=== PATIENT | female | born 1985 | race Caucasian/White ===

== ENCOUNTER 2019-03-31 12:43 | Inpatient (IN) | payer OTHER ==
[2019-03-31 13:40] VITALS: BMI 25.7
--- NOTE | 2019-03-31 15:00 | HP ---
COWS - Scale Resting Pulse: 1= [place] 81-100 Sweatin= Chills/Flushing Restless Observation: 1= Difficult to Sit Still Pupil Size: 1= Pupils >than Normal Bone or Joint Aches: 1= Mild Discomfort Runny Nose/ Eye Tearin= Runny Nose/Eyes GI Upset > 30mins: 2= Nausea/Diarrhea Tremor Observation: 2= Slight Tremor Visible Yawning Observation: 1= 1-2x During Session Anxiety or Irritability: 1=Feels Anxious/Irritable Goose Flesh Skin: 0=Smooth Skin COWS Score: 13 CIWA Score Nausea/Vomitin Muscle Tremors: 2 Anxiety: 2 Agitation: 1-Slight > Activity Paroxysmal Sweats: 2 Orientation: 0-Oriented Tacttile Disturbances: 1-Very Mild Itch/Numbness Auditory Disturbances: 0-None Visual Disturbances: 1-Very Mild Sensitivity Headache: 2-Mild CIWA-Ar Total Score: 13 - Admission Criteria [facility]ASAS Guidelines: Admission for Medically Managed Detox: Requires at least one of the followin. CIWA greater than 12 2. Seizures within the past 24 hours 3. Delirium tremens within the past 24 hours 4. Hallucinations within the past 24 hours 5. Acute intervention needed for co occurring medical disorder 6. Acute intervention needed for co occurring psychiatric disorder 7. Severe withdrawal that cannot be handled at a lower level of care (continued vomiting, continued diarrhea, abnormal vital signs) requiring intravenous medication and/or fluids 8. Admission [facility] Chief Complaint: 33 y/o F with PMH Crohn's dz, migraines, palpitations, GERD, anxiety, depression , who presents for detox from clonazepam and oxycodone. Allergies/Adverse Reactions: Allergies Allergy/AdvReac Type Severity Reaction Status Date / Time adalimumab [From Humira] Allergy Severe Rash Verified 03/31/19 13:11 infliximab [From Remicade] Allergy Severe Swelling Verified 03/31/19 13:13 iodine Allergy Severe Difficulty Verified 03/31/19 13:13 Breathing iohexol Allergy Severe Difficulty Verified 03/31/19 13:14 Breathing morphine Allergy Severe Hives Verified 03/31/19 13:10 vancomycin Allergy Severe Itching Verified 03/31/19 13:11 ciprofloxacin [From Cipro] Allergy Mild Rash Verified 03/31/19 13:15 gadofosveset Allergy Mild Itching Verified 03/31/19 13:15 metoclopramide [From Reglan] Allergy Mild Rash Verified 03/31/19 13:10 History of Present Illness: 33 y/o F with PMH Crohn's dz, migraines, palpitations, GERD, anxiety, depression , who presents for detox from clonazepam and oxycodone. Per pt, she has had multiple surgeries. She has had R lumpectomy 2006, ileo-colostomy 2007 w reversal 2008, lap ibeth 2013, umbilical hernia 2014. After she had her ileo- colectomy in 2007, she was placed on oxycodone for 1 month. States she was on oxycodone and percocets. Was taking 2 tabs of percocet TID, then tapered. States ever since, she has intermittently been on oxycodone, oxycontin. Most recently, she was hospitalized at [facility] and was found to have a Crohn's flare. At the time, she was found to have colitis and was managed with clonazepam and dilaudid for 4 day duration. States it was cut "cold turkey" three days ago. Has been feeling tremulous ever since. No other drug use PMH: as above PsxH: as above: R lumpectomy 2006, ileo-colostomy 2007 w reversal 2008, lap ibeth 2013, umbilical hernia 2014. meds: metoprolol succinate, lyrica, flonase, claritin, famotidine, sprintec ocp , sumatriptan, stelara, wellbutrin, cymbalta, omeprazole FH: mother - htn, anxiety, depression, hld SH : lives in [place] w parents. social drinker denies other use. no cigarettes Exam Limitations: No Limitations - Ebola screening Have you traveled outside of the country in the last 21 days: No Have you had contact with anyone from an Ebola affected area: No Have you been sick,other than usual withdrawal symptoms: No Do you have a fever: No - Review of Systems Constitutional: Chills EENT: reports: Blurred Vision Respiratory: reports: No Symptoms reported Cardiac: reports: Palpitations GI: reports: Diarrhea : reports: No Symptoms Reported Musculoskeletal: reports: No Symptoms Reported Integumentary: reports: Bruising Neuro: reports: No Symptoms reported Endocrine: reports: No Symptoms Reported Hematology: reports: No Symptoms Reported Psychiatric: reports: Orientated x3 Patient History - Patient Medical History Hx Anemia: No Hx Asthma: No Hx Chronic Obstructive Pulmonary Disease (COPD): No Hx Cancer: No Hx Cardiac Disorders: No Hx Congestive Heart Failure: No Hx Hypertension: No Hx Hypercholesterolemia: No Hx Pacemaker: No HX Cerebrovascular Accident: No Hx Seizures: No Hx Dementia: No Hx Diabetes: No Hx Gastrointestinal Disorders: No Hx Liver Disease: No Hx Genitourinary Disorders: No Hx Sexually Transmitted Disorders: No Hx Renal Disease (ESRD): No Hx Thyroid Disease: No Hx Human Immunodeficiency Virus (HIV): No Hx Hepatitis C: No Hx Depression: Yes Hx Suicide Attempt: No Hx Bipolar Disorder: No Hx Schizophrenia: No Other Medical History: crohn's dz, migraines, palpitations, gerd, anxiety - Patient Surgical History Past Surgical History: Yes Other Surgical History: R lumpectomy, ileo-colectomy, with reversal, lap ibeth, umbilical hernia - PPD History Documented Results: Positive w/o proof PPD to be Administered?: No - Reproductive History Patient is a Female of Child Bearing Age (11 -55 yrs old): Yes Last Menstrual Period: 03/20/19 Patient : No - Smoking Cessation Smoking history: Never smoked - Substance & Tx. History Substance Use Type: Prescribed - Substances abused Oxycontin Substance route: Oral Frequency: Daily Amount used: 120 mg Age of first use: 29 Date of last use: 03/26/19 Other Other (specify): clonazepam Substance route: Oral Frequency: Daily Family Disease History - Family Disease History Family Disease History: Other: Mother (htn, anxiety, depression, hld ) Admission Physical Exam S - Vital Signs Vital Signs: Vital Signs - 24 hr 03/31/19 03/31/19 13:30 14:34 Temperature 97.0 F L 97.0 F L Respiratory 18 18 Rate - Physical General Appearance: Yes: Within Normal Limits, Anxious HEENTM: Yes: Within Normal Limits Respiratory: Yes: Lungs Clear Neck: Yes: Within Normal Limits Breast: Yes: Breast Exam Deferred Cardiology: Yes: S1, S2, Tachycardia Abdominal: Yes: Other (+past surgical scars, diffuse tenderness) Genitourinary: Yes: Within Normal Limits Back: Yes: Within Normal Limits Musculoskeletal: Yes: Within Normal Limits Extremities: Yes: Within Normal Limits Neurological: Yes: technical solutions engineer II-XII NML intact Integumentary: Yes: Within Normal Limits Lymphatic: Yes: Within Normal Limits - Diagnostic (1) Opiate withdrawal Current Visit: Yes Status: Acute (2) Crohn disease Current Visit: Yes Status: Chronic (3) Migraines Current Visit: Yes Status: Chronic (4) Benzodiazepine withdrawal Current Visit: Yes Status: Chronic (5) GERD (gastroesophageal reflux disease) Current Visit: Yes Status: Chronic (6) Anxiety Current Visit: Yes Status: Chronic (7) Depression Current Visit: Yes Status: Chronic (8) Dehydration Current Visit: Yes Status: Chronic Cleared for Admission [facility] - Detox or Rehab [facility] Level of Care: Medically Managed Detox Regimen/Protocol: Methadone/Valium Breathalyzer - Breathalyzer Breathalyzer: 0 Urine Drug Screen - Test Device Lot number: [id number] Expiration date: 12/31/20 - Control Is test valid?: Yes - Results Drug screen NEGATIVE: No Urine drug screen results: OXY-Oxycodone Inpatient Rehab Admission - Rehab Decision to Admit Inpatient rehab admission?: No
[2019-03-31] MEDS ORDERED: METHADONE HCL 10 MG TABLET (FOR DETOX USE ONLY) PO ONE (15:30)
[2019-03-31] MEDS ORDERED: cloNIDine HCL 0.1 MG TABLET PO PRN (15:30)
[2019-03-31] MEDS ORDERED: MAGNESIUM HYDROX 2400MG/30ML ORAL SUSPENSION 30 ML CUP PO PRN (15:34)
[2019-03-31] MEDS ORDERED: BISMUTH SUBSALICYLATE 524 MG/30 ML UD PO PRN (15:34)
[2019-03-31] MEDS ORDERED: MELATONIN 5 MG TABLETS PO PRN (15:34)
[2019-03-31] MEDS ORDERED: ACETAMINOPHEN 325 MG TABLET (FP) PO PRN ×2 (15:34)
[2019-03-31] MEDS ORDERED: hydrOXYzine PAMOATE 25 MG CAPSULE (FP) PO PRN (15:34)
[2019-03-31] MEDS ORDERED: IBUPROFEN 400 MG TABLET (FP) PO PRN (15:34)
[2019-03-31] MEDS ORDERED: RANITIDINE PO SCH (15:45)
--- NOTE | 2019-03-31 15:52 | PN ---
Teaching Attending Note Name of Resident: Sydney Jorge ATTENDING PHYSICIAN STATEMENT I saw and evaluated the patient. I reviewed the resident's note and discussed the case with the resident. I agree with the resident's findings and plan as documented. SUBJECTIVE:this 33 years old female with opioid dependence prescribed, ulcerative colitis,multiple surgery,s/p lap cholecystectomy,and umbilical hernia , OBJECTIVE: Vital Signs Period Temp Pulse Resp BP Sys/Carrillo Pulse Ox Last 24 Hr 97.0 F-97.0 F 96 18-18 131/93 ASSESSMENT AND PLAN: this 33 years old female with multiple medical problem opiate and benzodiazepam dependence seeking detox, multiple medical problem,need in patient detox medical management,methadone and valium regen,she would like to be completely detox
[2019-03-31] MEDS ORDERED: SUMAtriptan SUCCINATE 50 MG TABLET PO PRN (16:07)
[2019-03-31] MEDS: PANTOPRAZOLE 20 MG TABLET (FP) PO SCH (16:52)
[2019-03-31] MEDS: diazePAM 5 MG TABLET PO SCH ×2 (16:52→22:18)
--- NOTE | 2019-03-31 18:14 | PN ---
[facility] Progress Note Note: Patient states on Lyrica and takes as prescribed. PDMP reviewed and will continue Lyrica. Patient Name: Caren Knott Date: 1985 Address: [address] [place] [address] Sex: Female Rx Written Rx Dispensed Drug Quantity Days Supply Prescriber Name 03/07/2019 03/07/2019 lyrica 150 mg capsule 90 30 Maribell Valadez 02/07/2019 02/11/2019 oxycontin er 60 mg tablet 60 30 JuárezJen MD 02/07/2019 02/10/2019 oxycodone-acetaminophen 5-325 mg tab 60 30 JuárezJen MD 09/20/2018 02/06/2019 lyrica 150 mg capsule 90 30 NidiryShima MD 02/06/2019 02/06/2019 clonazepam 0.5 mg tablet 120 30 Salinas, Leonardo 09/20/2018 01/13/2019 lyrica 150 mg capsule 90 30 NidiryShima MD 01/09/2019 01/10/2019 oxycodone-acetaminophen 5-325 mg tab 90 30 JuárezJen MD 01/09/2019 01/10/2019 oxycontin er 60 mg tablet 60 30 JuárezJen MD 09/20/2018 12/16/2018 lyrica 150 mg capsule 90 30 NidiryShima MD 12/12/2018 12/12/2018 oxycodone-acetaminophen 5-325 mg tab 90 30 JuárezJen MD 12/09/2018 12/10/2018 oxycontin er 60 mg tablet 60 30 JuárezJen MD 09/20/2018 11/19/2018 lyrica 150 mg capsule 90 30 NidiryShima MD 11/14/2018 11/14/2018 oxycodone-acetaminophen 5-325 mg tab 90 30 JuárezJen MD 11/08/2018 11/11/2018 oxycontin er 60 mg tablet 60 30 JuárezJen MD 11/07/2018 11/08/2018 clonazepam 0.5 mg tablet 120 30 Salinas, Leonardo 09/20/2018 10/25/2018 lyrica 150 mg capsule 90 30 Nidiry, Shima Cason MD 10/15/2018 10/16/2018 oxycodone-acetaminophen 5-325 mg tab 90 30 Nidiry, Shima Cason MD 10/10/2018 10/11/2018 oxycontin er 60 mg tablet 60 30 Nidiry, Shima Cason MD 10/11/2018 10/11/2018 clonazepam 0.5 mg tablet 60 30 David Odonnell MD 09/20/2018 09/30/2018 lyrica 150 mg capsule 90 30 Nidiry, Shima Cason MD 09/15/2018 09/17/2018 oxycodone-acetaminophen 5-325 mg tab 90 30 Nidiry, Shima Cason MD 09/10/2018 09/11/2018 oxycontin er 60 mg tablet 60 30 Jen Juárez MD 03/29/2018 09/02/2018 lyrica 150 mg capsule 90 30 Nidiry, Shima Cason MD 08/13/2018 08/14/2018 oxycodone-acetaminophen 5-325 mg tab 90 30 Nidiry, Shima Cason MD 08/09/2018 08/09/2018 oxycontin er 60 mg tablet 60 30 Nidiry, Shima Cason MD 03/29/2018 08/06/2018 lyrica 150 mg capsule 90 30 Nidiry, Shima Cason MD 07/15/2018 07/16/2018 oxycodone-acetaminophen 5-325 mg tab 90 30 Nidiry, Shima Cason MD 07/11/2018 07/12/2018 clonazepam 0.5 mg tablet 120 30 Leonardo Salinas 07/11/2018 07/12/2018 oxycontin er 60 mg tablet 60 30 Nidiry, Shima Cason MD 03/29/2018 07/09/2018 lyrica 150 mg capsule 90 30 Nidiry, Shima Cason MD 06/13/2018 06/13/2018 oxycodone-acetaminophen 5-325 mg tab 180 30 Nidiry, Shima Cason MD 03/29/2018 06/11/2018 lyrica 150 mg capsule 90 30 Nidiry, Shima Cason MD 06/06/2018 06/07/2018 oxycontin er 60 mg tablet 60 30 Nidiry, Shima Cason MD 03/29/2018 05/16/2018 lyrica 150 mg capsule 90 30 Nidiry, Shima Cason MD 05/13/2018 05/14/2018 oxycodone-acetaminophen 5-325 mg tab 180 30 Nidiry, Shima Cason MD 05/09/2018 05/10/2018 oxycontin er 60 mg tablet 60 30 Nidiry, Shima Cason MD 03/29/2018 04/23/2018 lyrica 150 mg capsule 90 30 Nidiry, Shima Cason MD 04/12/2018 04/12/2018 oxycodone-acetaminophen 5-325 mg tab 180 30 Nidiry, Shima Cason MD 04/08/2018 04/08/2018 oxycontin er 60 mg tablet 60 30 Nidiry, Shima Cason MD
[2019-03-31] MEDS: PREGABALIN 75 MG CAPSULE PO SCH (22:18)
[2019-04-01] MEDS: MENTHOL/PHENOL 1 EACH UD MM PRN (00:57)
[2019-04-01] MEDS: diazePAM 5 MG TABLET PO SCH ×3 (06:06→22:19)
[2019-04-01] MEDS: PREGABALIN 75 MG CAPSULE PO SCH ×3 (06:06→22:18)
[2019-04-01] MEDS ORDERED: METHADONE HCL 5 MG TABLET (FOR DETOX USE ONLY) ONE (09:04)
[2019-04-01] MEDS ORDERED: METHADONE HCL 10 MG TABLET (FOR DETOX USE ONLY) ONE (09:05)
[2019-04-01] MEDS ORDERED: cloNIDine HCL 0.1 MG TABLET PO ONE (09:31)
[2019-04-01] MEDS: PANTOPRAZOLE 20 MG TABLET (FP) PO SCH (09:33)
[2019-04-01] MEDS: PRENATAL VITAMINS W/ FOLIC ACID TABLET (FP) PO SCH (09:33)
[2019-04-01] MEDS: metoPROLOL SUCCINATE 25 MG TAB.SR.24H (FP) PO SCH (09:33)
[2019-04-01] MEDS: predniSONE 10 MG TABLET (UD) PO SCH (09:42)
[2019-04-01] MEDS ORDERED: NORGESTIMATE PO SCH (10:00)
[2019-04-01] MEDS ORDERED: ETHINYL ESTRADIOL PO SCH (10:00)
[2019-04-01] MEDS ORDERED: METHADONE (DETOX) 20 MG, METHADONE (DETOX) 5 MG PO ONE (10:00)
--- NOTE | 2019-04-01 10:26 | CONSULT ---
[facility] Psychiatric Consult - Data Date of interview: 04/01/19 Admission source: WILIAN/Nam Meier Identifying data: Ms Julien is a 33 years old single female, unemployed receiving SSI, domiciled living with parents seeking detox treatment for oxycontin and benzodiazepine Substance Abuse History: Reports history of oxycontin and klonopin use. Refer to addiction counselor's summary for further information Medical History: Significant for migraine headache, GERD, PPD+, history of crohn 's disease and surgeries(right lumpectomy for benign breast tumor, ileo- colostomy in 2007 and reverse in 2008, lap cholecystectomy, umbilical hernia repair) Psychiatric History: Reports that her first psychiatric contact was in 2007 as consequence of depression related to her crohn's diagnosis. She saw a psychiatrist at [facility] in [facility] and she was started on Lexapro 20 mg/day and Klonopin. She has been receiving psychiatric treatment at same clinic since but with different psychiatrist. She is currently prescribed Wellbutrin XL 150 mg/day and Cymbalta 30 mg/day. Reports one previous psychiatric admission to [facility] in 2016 for 4 days. She said that at time she took a combination of medications including klonopin, Lyrica and and woke up confused. She told sba underwriter that she took medications prescribed to her at the right dose and denies that it was suicidal attempt. Denies any previous suicidal attempt. At present, reports feeling mildly depressed, anxious and sleeping poorly Physical/Sexual Abuse/Trauma History: Denies history of emotional, physical or sexual abuse as well as DV relationship Additional Comment: Denies criminal history Mental Status Exam - Mental Status Exam Alert and Oriented to: Time, Place, Person Cognitive Function: Fair Patient Appearance: Well Groomed Mood: Depressed (mildly), Anxious (mildly) Affect: Appropriate Patient Behavior: Cooperative Speech Pattern: Clear Voice Loudness: Normal Thought Process: Intact, Goal Oriented Thought Disorder: Not Present Hallucinations: Denies Suicidal Ideation: Denies Homicidal Ideation: Denies Insight/Judgement: Poor Sleep: Poorly Appetite: Good Muscle strength/Tone: Normal Gait/Station: Normal Psychiatric Findings - Problem List ([place] 1, 2,3) (1) MDD (major depressive disorder) Current Visit: Yes Status: Chronic (2) Substance induced mood disorder Current Visit: Yes Status: Acute (3) Substance-induced sleep disorder Current Visit: Yes Status: Acute (4) Opioid dependence, uncomplicated Current Visit: Yes Status: Acute (5) Sedative, hypnotic or anxiolytic dependence, uncomplicated Current Visit: Yes Status: Acute (6) Crohn disease Current Visit: Yes Status: Chronic (7) GERD (gastroesophageal reflux disease) Current Visit: Yes Status: Chronic (8) Migraines Current Visit: Yes Status: Chronic (9) PPD positive Current Visit: Yes Status: Chronic - Initial Treatment Plan Initial Treatment Plan: 1) Continue Wellbutrin XL 150 mg po daily and Cymbalta 30 mg po daily. 2) Start Meltonin 10 mg po HS prn for insomnia. 3) Continue inpatient detoxification
--- NOTE | 2019-04-01 11:37 | PN ---
[facility] CIWA - CIWA Score Nausea/Vomitin-No Nausea/No Vomiting Muscle Tremors: 2 Anxiety: 2 Agitation: 3 Paroxysmal Sweats: 3 Orientation: 0-Oriented Tacttile Disturbances: 0-None Auditory Disturbances: 0-None Visual Disturbances: 0-None Headache: 0-None Present CIWA-Ar Total Score: 10 BHS COWS - Scale Resting Pulse: 4= [place] > 121 Sweatin=Flushed/Facial Moisture Restless Observation: 1= Difficult to Sit Still Pupil Size: 0= Normal to Room Light Bone or Joint Aches: 2= Severe Diffuse Aches Runny Nose/ Eye Tearin= Runny Nose/Eyes GI Upset > 30mins: 1= Stomach Cramp Tremor Observation of Outstretched Hands: 1= Tremor [place], Not Seen Yawning Observation: 1= 1-2x During Session Anxiety or Irritability: 1=Feels Anxious/Irritable Goose Flesh Skin: 0=Smooth Skin COWS Score: 15 BHS Progress Note (SOAP) Subjective: my heart is racing sweats shakes interrupted sleep body aches irritable agitation Objective: 04/01/19 11:35 Vital Signs Temperature 97.2 F L 04/01/19 09:24 Pulse Rate 131 H 04/01/19 09:24 Respiratory Rate 20 04/01/19 09:24 Blood Pressure 110/76 04/01/19 09:24 O2 Sat by Pulse Oximetry (%) labs pending aaox3 ambulating no acute distress tachycardia noted; ekg ordered will repeat HR Assessment: 04/01/19 11:36 withdrawal sx Plan: continue detox increase fluids EKG report show normal sinus tachycardia; no significant issues noted clonidine 0.1mg bid ordered will continue to monitor HR
[2019-04-01] MEDS: DULoxetine HCL 30 MG CAPSULE.DR PO SCH (11:43)
--- NOTE | 2019-04-01 13:28 | EKG ---
Test Reason : Blood Pressure : / mmHG Vent. Rate : 119 BPM Atrial Rate : 119 BPM P-R Int : 124 ms QRS Dur : 076 ms QT Int : 340 ms P-R-T Axes : 056 035 018 degrees QTc Int : 478 ms SINUS TACHYCARDIA POSSIBLE LEFT ATRIAL ENLARGEMENT BORDERLINE ECG NO PREVIOUS ECGS AVAILABLE Confirmed by MD THERESA, FLAQUITO ([id number]) on 04/01/2019 1:28:30 PM Referred By: ALEXX MORSE Confirmed By:FLAQUITO CARDENAS MD
[2019-04-01] MEDS ORDERED: ONDANSETRON *ODT* 4 MG TABLET SL PRN (14:41)
[2019-04-01] MEDS: cloNIDine HCL 0.1 MG TABLET PO SCH (22:18)
[2019-04-01] MEDS: MELATONIN 5 MG TABLETS PO PRN (22:19)
[2019-04-02] MEDS: diazePAM 5 MG TABLET PO PRN ×3 (02:08→22:19)
[2019-04-02] MEDS: PREGABALIN 75 MG CAPSULE PO SCH ×3 (06:11→22:15)
[2019-04-02] MEDS: diazePAM 5 MG TABLET PO SCH ×2 (06:11→17:45)
[2019-04-02] MEDS: MENTHOL/PHENOL 1 EACH UD MM PRN (06:15)
[2019-04-02] MEDS ORDERED: METHADONE HCL 10 MG TABLET (FOR DETOX USE ONLY) PO ONE (10:00)
[2019-04-02] MEDS: PANTOPRAZOLE 20 MG TABLET (FP) PO SCH (10:19)
[2019-04-02] MEDS: metoPROLOL SUCCINATE 25 MG TAB.SR.24H (FP) PO SCH ×2 (10:19→10:22)
[2019-04-02] MEDS: predniSONE 10 MG TABLET (UD) PO SCH (10:19)
[2019-04-02] MEDS: PRENATAL VITAMINS W/ FOLIC ACID TABLET (FP) PO SCH (10:19)
[2019-04-02] MEDS: DULoxetine HCL 30 MG CAPSULE.DR PO SCH (10:19)
[2019-04-02] MEDS: cloNIDine HCL 0.1 MG TABLET PO SCH (10:20)
[2019-04-02] MEDS ORDERED: cloNIDine HCL 0.1 MG TABLET PO PRN (11:17)
--- NOTE | 2019-04-02 11:20 | PN ---
[facility] CIWA - CIWA Score Nausea/Vomitin-No Nausea/No Vomiting Muscle Tremors: 2 Anxiety: 1-Mildly Anxious Agitation: 2 Paroxysmal Sweats: 1-Minimal Palms Moist Orientation: 0-Oriented Tacttile Disturbances: 0-None Auditory Disturbances: 0-None Visual Disturbances: 0-None Headache: 0-None Present CIWA-Ar Total Score: 6 BHS COWS - Scale Resting Pulse: 2= [place] 101-120 Sweatin= Chills/Flushing Restless Observation: 0= Sits Still Pupil Size: 0= Normal to Room Light Bone or Joint Aches: 1= Mild Discomfort Runny Nose/ Eye Tearin= Nasal Congestion GI Upset > 30mins: 0= None Tremor Observation of Outstretched Hands: 1= Tremor [place], Not Seen Yawning Observation: 1= 1-2x During Session Anxiety or Irritability: 1=Feels Anxious/Irritable Goose Flesh Skin: 0=Smooth Skin COWS Score: 8 [facility] Progress Note (SOAP) Subjective: anxiety sweats body aches feeling better Objective: 04/02/19 11:20 Vital Signs Temperature 97.9 F 04/02/19 09:34 Pulse Rate 104 H 04/02/19 09:34 Respiratory Rate 16 04/02/19 09:34 Blood Pressure 97/70 04/02/19 09:34 O2 Sat by Pulse Oximetry (%) cbc, cmp, rpr ordered BP undercontrol; clonidine d/c Assessment: 04/02/19 11:22 withdrawals sx Plan: continue detox increase fluids clonidine 0.1mg ordered for prn only
[2019-04-02 16:35] LABS: BASO % 0.2 % (0-2.0); EOS % 0.1 % (0-4.5); HEMATOCRIT 39.4 % (32.4-45.2); HEMOGLOBIN 12.8 GM/dL (10.7-15.3); LYMPH % 21.2 % (8-40); MCH 29.5 pg (25.7-33.7); MCHC 32.6 g/dl (32.0-36.0); MEAN CELL VOLUME 90.4 fl (80-96); MEAN PLT VOLUME 9.8 fl (7.5-11.1); MONO % 5.6 % (3.8-10.2); NEUT % 72.9 % (42.8-82.8); PLATELET COUNT 218 K/MM3 (134-434); RBC 4.36 M/mm3 (3.60-5.2); RDW 15.4 % (11.6-15.6); WHITE BLOOD COUNT 13.9 K/mm3 (4.0-10.0)
[2019-04-02 16:40] LABS: ALBUMIN 3.6 g/dl (3.4-5.0); BILIRUBIN,TOTAL 0.4 mg/dL (0.2-1); BLOOD UREA NITROGEN 19.9 mg/dL (7-18); CREATININE 1.2 mg/dL (0.55-1.3); POTASSIUM 4.1 mmol/L (3.5-5.1); TOT PROT 6.5 g/dl (6.4-8.2)
[2019-04-02 18:16] LABS: ANISOCYTOSIS 1+; MACROCYTOSIS 1+; PLATELET ESTIMATE NORMAL
[2019-04-02] MEDS: MELATONIN 5 MG TABLETS PO PRN (22:16)
[2019-04-03] MEDS ORDERED: diazePAM 5 MG TABLET PO ONE (06:00)
[2019-04-03] MEDS: PREGABALIN 75 MG CAPSULE PO SCH ×3 (06:32→21:45)
[2019-04-03] MEDS ORDERED: METHADONE HCL 10 MG TABLET (FOR DETOX USE ONLY) ONE (08:56)
[2019-04-03] MEDS ORDERED: METHADONE HCL 5 MG TABLET (FOR DETOX USE ONLY) ONE (08:57)
[2019-04-03] MEDS ORDERED: METHADONE (DETOX) 10 MG, METHADONE (DETOX) 5 MG PO ONE (10:00)
[2019-04-03] MEDS: PRENATAL VITAMINS W/ FOLIC ACID TABLET (FP) PO SCH (10:38)
[2019-04-03] MEDS: PANTOPRAZOLE 20 MG TABLET (FP) PO SCH (10:38)
[2019-04-03] MEDS: DULoxetine HCL 30 MG CAPSULE.DR PO SCH (10:38)
[2019-04-03] MEDS: metoPROLOL SUCCINATE 25 MG TAB.SR.24H (FP) PO SCH (10:38)
[2019-04-03] MEDS: predniSONE 10 MG TABLET (UD) PO SCH (10:38)
[2019-04-03] MEDS: diazePAM 5 MG TABLET PO PRN (10:40)
[2019-04-03] MEDS: valACYclovir HCL 500 MG TABLET (FP) PO SCH ×2 (11:34→21:46)
--- NOTE | 2019-04-03 12:34 | PN ---
S CIWA - CIWA Score Nausea/Vomitin-No Nausea/No Vomiting Muscle Tremors: 2 Anxiety: 2 Agitation: 0-Normal Activity Paroxysmal Sweats: 2 Orientation: 0-Oriented Tacttile Disturbances: 0-None Auditory Disturbances: 0-None Visual Disturbances: 0-None Headache: 0-None Present CIWA-Ar Total Score: 6 BHS Progress Note (SOAP) Subjective: anxiety cold sore on my lip Objective: 04/03/19 12:32 Vital Signs Temperature 98.2 F 04/03/19 09:47 Pulse Rate 119 H 04/03/19 09:47 Respiratory Rate 16 04/03/19 09:47 Blood Pressure 115/78 04/03/19 09:47 O2 Sat by Pulse Oximetry (%) aaox3 ambulating no acute distress Assessment: 04/03/19 12:32 withdrawal sx cold sore noted to upper and lower inner lip Plan: continue detox valtrex 500mg x 7 days ordered increase fluids
[2019-04-03] MEDS: MAG HYDROX/AL HYDROX/SIMETH 30 ML UNIT-DOSE CUP PO PRN (18:14)
[2019-04-03] MEDS: hydrOXYzine PAMOATE 50 MG CAPSULE (FP) PO PRN (21:45)
[2019-04-03] MEDS: MELATONIN 5 MG TABLETS PO PRN (21:46)
[2019-04-04] MEDS: PREGABALIN 75 MG CAPSULE PO SCH ×3 (05:32→22:03)
[2019-04-04] MEDS ORDERED: METHADONE HCL 10 MG TABLET (FOR DETOX USE ONLY) PO ONE (10:00)
[2019-04-04] MEDS: DULoxetine HCL 30 MG CAPSULE.DR PO SCH (10:28)
[2019-04-04] MEDS: predniSONE 10 MG TABLET (UD) PO SCH (10:28)
[2019-04-04] MEDS: PRENATAL VITAMINS W/ FOLIC ACID TABLET (FP) PO SCH (10:29)
[2019-04-04] MEDS: PANTOPRAZOLE 20 MG TABLET (FP) PO SCH (10:29)
[2019-04-04] MEDS: metoPROLOL SUCCINATE 25 MG TAB.SR.24H (FP) PO SCH (10:29)
[2019-04-04] MEDS: valACYclovir HCL 500 MG TABLET (FP) PO SCH ×2 (10:30→22:03)
[2019-04-04] MEDS: MAG HYDROX/AL HYDROX/SIMETH 30 ML UNIT-DOSE CUP PO PRN ×2 (10:30→18:15)
[2019-04-04] MEDS: hydrOXYzine PAMOATE 50 MG CAPSULE (FP) PO PRN ×3 (10:31→22:04)
--- NOTE | 2019-04-04 12:46 | PN ---
Psychiatric Progress Note Vital Signs: Vital Signs Period Temp Pulse Resp BP Sys/Carrillo Pulse Ox Last 24 Hr 97.6 F-98.8 F 93-103 17-18 100-127/55-83 Date of Session: 04/04/19 Chief Complaint:: " will i get medication for anxiety while in rehab." HPI: Patient admitted to [facility] detox for oxycontin and benzodiazepine dependence. ROS: Patient is coherent, alert and oriented X3. Current Medications: Active Medications Generic Name Dose Route Start Last Admin Trade Name Freq PRN Reason Stop Dose Admin Acetaminophen 650 mg 03/31/19 15:34 Tylenol - PO Q6H PRN PAIN LEVEL 4 - 6 Acetaminophen 650 mg 03/31/19 15:34 Tylenol - PO Q6H PRN FEVER Al Hydroxide/Mg Hydroxide 30 ml 03/31/19 15:34 04/04/19 10:30 Mylanta Oral Suspension - PO 30 ml Q6H PRN Administration DYSPEPSIA Bismuth Subsalicylate 524 mg 03/31/19 15:34 Pepto-Bismol - PO Q1H PRN DIARRHEA Bupropion HCl 150 mg 04/01/19 11:00 04/04/19 10:29 Wellbutrin Xl - PO 150 mg DAILY ALINE Administration Duloxetine HCl 30 mg 04/01/19 11:00 04/04/19 10:28 Cymbalta - PO 30 mg DAILY ALINE Administration Eucalyptus/Menthol/Phenol/Sorbitol 1 each 03/31/19 15:34 04/02/19 06:15 Cepastat Lozenge - MM 04/06/19 15:34 1 each Q4H PRN Administration SORE THROAT Hydroxyzine Pamoate 50 mg 04/03/19 10:02 04/04/19 10:31 Vistaril - PO 50 mg Q4H PRN Administration FOR ITCHING Ibuprofen 400 mg 03/31/19 15:34 Motrin - PO Q6H PRN PAIN LEVEL 1 - 3 Magnesium Hydroxide 30 ml 03/31/19 15:34 Milk Of Magnesia - PO PRN PRN CONSTIPATION Melatonin 10 mg 04/01/19 10:31 04/03/19 21:46 Melatonin PO 10 mg HS PRN Administration INSOMNIA Methadone HCl 5 mg 04/05/19 06:00 Dolophine - PO 04/05/19 06:01 ONCE@0600 ONE Metoprolol Succinate 25 mg 04/01/19 10:00 04/04/19 10:29 Toprol Xl - PO 25 mg DAILY ALINE Administration Ondansetron HCl 4 mg 04/01/19 14:41 04/01/19 14:50 Zofran Odt - SL 4 mg Q6H PRN Administration NAUSEA AND/OR VOMITING Pantoprazole Sodium 20 mg 03/31/19 16:00 04/04/19 10:29 Protonix - PO 20 mg DAILY ALINE Administration Prednisone 20 mg 04/05/19 10:00 Deltasone - PO 04/09/19 10:00 DAILY ALINE Pregabalin 150 mg 03/31/19 22:00 04/04/19 05:32 Lyrica - PO 150 mg TID ALINE Administration Multivit/Folic Acid/Iron 1 tab 04/01/19 10:00 04/04/19 10:29 Vitamins (Sjr) - PO 1 tab DAILY ALINE Administration Sumatriptan Succinate 100 mg 03/31/19 16:07 Imitrex - PO DAILY PRN Migranes Valacyclovir HCl 500 mg 04/03/19 11:05 04/04/19 10:30 Valtrex - PO 04/10/19 11:04 500 mg BID ALINE Administration Medication(s) Change(s): No. Current Side Effect: No Lab tests ordered: No Lab tests reviewed: Yes Provider note:: Patient inquring information about her current medications. Asking she will continue to receive her psychotropic medications when admitted to rehab at [facility]. Patient informed that her medications will be continued while in rehab and that vistaril will also be available for her to have for anxiety. Patient made aware that her PRN of klonopin 0.5mg and methadone will not be available in rehab. Patient satisifed and receptive to feedback. Total face to face time:: 20 Mental Status Exam - Mental Status Exam Alert and Oriented to: Time, Place, Person Cognitive Function: Good Patient Appearance: Well Groomed Mood: Euthymic Affect: Mood Congruent Patient Behavior: Cooperative Speech Pattern: Appropriate Voice Loudness: Normal Thought Process: Goal Oriented Thought Disorder: Not Present Hallucinations: Denies Suicidal Ideation: Denies Homicidal Ideation: Denies Insight/Judgement: Poor Sleep: Fair Appetite: Fair Muscle strength/Tone: Normal Gait/Station: Normal Psychiatric Treatment Plan - Problem List (1) Sedative, hypnotic or anxiolytic dependence, uncomplicated Current Visit: Yes (2) Substance induced mood disorder Current Visit: Yes (3) Substance-induced sleep disorder Current Visit: Yes (4) MDD (major depressive disorder) Current Visit: Yes (5) Opioid dependence, uncomplicated Current Visit: Yes
--- NOTE | 2019-04-04 13:57 | PN ---
BHS COWS - Scale Resting Pulse: 1= [place] 81-100 Sweatin=Flushed/Facial Moisture Restless Observation: 1= Difficult to Sit Still Pupil Size: 0= Normal to Room Light Bone or Joint Aches: 1= Mild Discomfort Runny Nose/ Eye Tearin= None GI Upset > 30mins: 0= None Tremor Observation of Outstretched Hands: 1= Tremor [place], Not Seen Yawning Observation: 1= 1-2x During Session Anxiety or Irritability: 1=Feels Anxious/Irritable Goose Flesh Skin: 0=Smooth Skin COWS Score: 8 BHS Progress Note (SOAP) Subjective: agitation sweats Objective: 04/04/19 13:56 Vital Signs Temperature 97.3 F L 04/04/19 13:50 Pulse Rate 109 H 04/04/19 13:50 Respiratory Rate 18 04/04/19 13:50 Blood Pressure 98/59 L 04/04/19 13:50 O2 Sat by Pulse Oximetry (%) aaox3 ambulating no acute distress Assessment: 04/04/19 13:57 mild withdrawal sx Plan: continue detox increase fluids d/c in am
[2019-04-04] MEDS ORDERED: LIDOCAINE 5% TOPICAL PATCH TP ONE (15:01)
[2019-04-04] MEDS ORDERED: LIDOCAINE PATCH REMOVAL MC SCH (22:00)
[2019-04-04] MEDS: MELATONIN 5 MG TABLETS PO PRN (22:03)
[2019-04-05] MEDS: PREGABALIN 75 MG CAPSULE PO SCH ×2 (05:26→13:09)
[2019-04-05] MEDS ORDERED: METHADONE HCL 5 MG TABLET (FOR DETOX USE ONLY) PO ONE (06:00)
[2019-04-05 09:53] VITALS: BP 118/74; PULSE 101; TEMP 97.3
[2019-04-05] MEDS ORDERED: predniSONE 20 MG TABLET (UD) PO SCH (10:00)
[2019-04-05] MEDS: PRENATAL VITAMINS W/ FOLIC ACID TABLET (FP) PO SCH (10:32)
[2019-04-05] MEDS: valACYclovir HCL 500 MG TABLET (FP) PO SCH (10:32)
[2019-04-05] MEDS: metoPROLOL SUCCINATE 25 MG TAB.SR.24H (FP) PO SCH (10:32)
[2019-04-05] MEDS: DULoxetine HCL 30 MG CAPSULE.DR PO SCH (10:33)
[2019-04-05] MEDS: PANTOPRAZOLE 20 MG TABLET (FP) PO SCH (10:33)
[2019-04-05] MEDS: MAG HYDROX/AL HYDROX/SIMETH 30 ML UNIT-DOSE CUP PO PRN (10:36)
--- NOTE | 2019-04-05 12:22 | DS ---
[facility] Detox Discharge Summary Admission Date: 03/31/19 Discharge Date: 04/05/19 - History Present History: Opioid Dependence Additional Comments: Pt is medically cleared and discharge today. Pt completed her detox protocol. Pt is encouraged to follow-up with CD outpatient program and also to follow-up with her PMD. Pt verbalized understanding. Pt is alert and oriented x3 and in no acute distress. Pertinent Past History: H/o opioid use disorder. - Physical Exam Results Vital Signs: Vital Signs Temperature 97.3 F L 04/05/19 09:52 Pulse Rate 101 H 04/05/19 09:52 Respiratory Rate 18 04/05/19 09:52 Blood Pressure 118/74 04/05/19 09:52 O2 Sat by Pulse Oximetry (%) Vital Signs 04/05/19 04/05/19 07:06 09:52 Temperature 98.2 F 97.3 F L Pulse Rate 84 101 H Respiratory 18 18 Rate Blood Pressure 126/79 118/74 Lab Results WBC 13.9 K/mm3 (4.0-10.0) H 04/02/19 11:45 RBC 4.36 M/mm3 (3.60-5.2) 04/02/19 11:45 Hgb 12.8 GM/dL (10.7-15.3) 04/02/19 11:45 Hct 39.4 % (32.4-45.2) 04/02/19 11:45 MCV 90.4 fl (80-96) 04/02/19 11:45 MCHC 32.6 g/dl (32.0-36.0) 04/02/19 11:45 RDW 15.4 % (11.6-15.6) 04/02/19 11:45 Plt Count 218 K/MM3 (134-434) 04/02/19 11:45 Sodium 138 mmol/L (136-145) 04/02/19 11:45 Potassium 4.1 mmol/L (3.5-5.1) 04/02/19 11:45 Chloride 102 mmol/L (98-107) 04/02/19 11:45 Carbon Dioxide 32 mmol/L (21-32) 04/02/19 11:45 Anion Gap 5 MMOL/L (8-16) L 04/02/19 11:45 BUN 19.9 mg/dL (7-18) H 04/02/19 11:45 Creatinine 1.2 mg/dL (0.55-1.3) 04/02/19 11:45 Random Glucose 88 mg/dL (74-106) 04/02/19 11:45 Calcium 9.0 mg/dL (8.5-10.1) 04/02/19 11:45 Labs noted. - Treatment Hospital Course: Detox Protocol Followed, Detoxed Safely, Responded well, Discharged Condition Good - Medication Discharge Medications: Ambulatory Orders Bupropine 150 mg PO DAILY 03/31/19 Clonazepam 0.5 mg PO BID 03/31/19 Cymbalta 30 mg PO DAILY 03/31/19 Lyrica 150 mg PO TID 03/31/19 Metoprolol Succinate 25 mg PO DAILY 03/31/19 Prednisone 30 mg PO DAILY 03/31/19 Sprintec 28 Day Tablet 0.25 mg PO DAILY 03/31/19 Stelara 45 mg SQ Q2M 03/31/19 Sumatriptan 100 mg PO DAILY PRN 03/31/19 Zantac 20 mg PO DAILY 03/31/19 - Diagnosis (1) Opioid dependence, uncomplicated Current Visit: Yes Status: Acute (2) Sedative, hypnotic or anxiolytic dependence, uncomplicated Current Visit: Yes Status: Acute (3) Crohn disease Current Visit: Yes Status: Chronic (4) GERD (gastroesophageal reflux disease) Current Visit: Yes Status: Chronic (5) Migraines Current Visit: Yes Status: Chronic (6) PPD positive Current Visit: Yes Status: Chronic - AMA Did Patient Leave Against Medical Advice: No
[2019-04-05] MEDS: hydrOXYzine PAMOATE 50 MG CAPSULE (FP) PO PRN (13:09)
== END 2019-04-05 13:22 | disposition other institution (70) | DRG 897 ==
LOC: YASAS 12:43 → Y6N 15:29
PROVIDERS: ADMIT Surgery; ATTEND Surgery
PROC: HZ2ZZZZ Detoxification Services for Substance Abuse Treatment (ICD-10-PCS; principal; 2019-03-31)
DX: F11.23 Opioid dependence with withdrawal (principal); F19.282 Other psychoactive substance dependence with psychoactive substance-induced sleep disorder; F33.9 Major depressive disorder, recurrent, unspecified; K50.90 Crohn's disease, unspecified, without complications; F13.230 Sedative, hypnotic or anxiolytic dependence with withdrawal, uncomplicated; F19.24 Other psychoactive substance dependence with psychoactive substance-induced mood disorder; K21.9 Gastro-esophageal reflux disease without esophagitis; G43.909 Migraine, unspecified, not intractable, without status migrainosus; R76.11 Nonspecific reaction to tuberculin skin test without active tuberculosis
CPT/HCPCS: 36415; 71046-TC-FY; 80053; 81025; 85025; 86593; 93005; 93010; J0735; Q0162

== ENCOUNTER 2019-04-05 13:31 | Inpatient (IN) | payer OTHER ==
--- NOTE | 2019-04-04 15:02 | HP ---
[facility] Rehab Assess/Revision - Admission History Admitted to Rehab from[facility] - Findings Detox History & Physical reviewed: Yes Concur with findings: Yes Inpatient Rehab Admission - Rehab Decision to Admit Inpatient rehab admission?: Yes - Initial Determination Are CD services needed?: Yes Free of communicable disease: Yes Not in need of hospitalization: Yes - Rehab Admission Criteria Previous failed treatment: Yes Poor recovery environment: Yes Comorbidities: Yes Lacks judgement: Yes Patient is meeting Inpatient Rehab admission criteria:: Yes
[~2019-04-05 13:31] MED LIST: IBUPROFEN 400 MG TABLET (FP) PO PRN; LOPERAMIDE HCL 2 MG CAPSULE PO PRN; MAGNESIUM CITRATE 300 ML BOTTLE PO PRN; MAGNESIUM HYDROX 2400MG/30ML ORAL SUSPENSION 30 ML CUP PO PRN; MELATONIN 5 MG TABLETS PO PRN; NICOTINE POLACRILEX 4 MG GUM BUC PRN; P-EPHED 60MG/TRIPROLIDI 2.5MG TABLET PO PRN; guaiFENesin 200 MG/10 ML 10 ML UNIT-DOSE CUPS PO PRN
[2019-04-05] MEDS: PRENATAL VITAMINS W/ FOLIC ACID TABLET (FP) PO SCH (14:20)
[2019-04-05] MEDS: NICOTINE 21 MG/24 HOURS TOPICAL PATCH TD SCH (14:20)
[2019-04-05] MEDS: THIAMINE HCL 100 MG TABLET (FP) PO SCH (21:36)
[2019-04-05] MEDS: hydrOXYzine PAMOATE 50 MG CAPSULE (FP) PO PRN (21:36)
[2019-04-05] MEDS: ACETAMINOPHEN 325 MG TABLET (FP) PO PRN (23:25)
[2019-04-06] MEDS: hydrOXYzine PAMOATE 50 MG CAPSULE (FP) PO PRN ×3 (06:37→21:40)
[2019-04-06] MEDS ORDERED: metoPROLOL SUCCINATE 25 MG TAB.SR.24H (FP) PO SCH (10:00)
[2019-04-06] MEDS: PRENATAL VITAMINS W/ FOLIC ACID TABLET (FP) PO SCH (10:08)
[2019-04-06] MEDS: MAG HYDROX/AL HYDROX/SIMETH 30 ML UNIT-DOSE CUP PO PRN (10:10)
[2019-04-06] MEDS: NICOTINE 21 MG/24 HOURS TOPICAL PATCH TD SCH (10:10)
[2019-04-06] MEDS: metoPROLOL SUCCINATE 25 MG TAB.SR.24H (FP) PO SCH (10:45)
[2019-04-06] MEDS: PANTOPRAZOLE 20 MG TABLET (FP) PO SCH (10:45)
[2019-04-06] MEDS ORDERED: predniSONE 20 MG TABLET (UD) PO SCH (11:00)
[2019-04-06] MEDS: predniSONE 20 MG TABLET (UD) PO SCH (11:40)
[2019-04-06] MEDS: valACYclovir HCL 500 MG TABLET (FP) PO SCH ×2 (11:40→21:41)
[2019-04-06] MEDS: DULoxetine HCL 30 MG CAPSULE.DR PO SCH (12:05)
[2019-04-06] MEDS: THIAMINE HCL 100 MG TABLET (FP) PO SCH (21:39)
[2019-04-06] MEDS: MELATONIN 5 MG TABLETS PO PRN (21:42)
[2019-04-06] MEDS: ACETAMINOPHEN 325 MG TABLET (FP) PO PRN (23:08)
[2019-04-07] MEDS ORDERED: PT OWN MED DRAWER 7, Y5N ONE (08:49)
[2019-04-07] MEDS: predniSONE 20 MG TABLET (UD) PO SCH (09:55)
[2019-04-07] MEDS: DULoxetine HCL 30 MG CAPSULE.DR PO SCH (09:55)
[2019-04-07] MEDS: metoPROLOL SUCCINATE 25 MG TAB.SR.24H (FP) PO SCH (09:56)
[2019-04-07] MEDS: PRENATAL VITAMINS W/ FOLIC ACID TABLET (FP) PO SCH (09:56)
[2019-04-07] MEDS: PANTOPRAZOLE 20 MG TABLET (FP) PO SCH (09:56)
[2019-04-07] MEDS: valACYclovir HCL 500 MG TABLET (FP) PO SCH ×2 (09:56→21:31)
[2019-04-07] MEDS: hydrOXYzine PAMOATE 50 MG CAPSULE (FP) PO PRN ×2 (09:56→21:31)
[2019-04-07] MEDS: NICOTINE 21 MG/24 HOURS TOPICAL PATCH TD SCH (09:59)
[2019-04-07] MEDS: THIAMINE HCL 100 MG TABLET (FP) PO SCH (21:31)
[2019-04-07] MEDS: ACETAMINOPHEN 325 MG TABLET (FP) PO PRN (21:31)
[2019-04-07] MEDS: MELATONIN 5 MG TABLETS PO PRN (21:32)
[2019-04-07] MEDS: MENTHOL/PHENOL 1 EACH UD MM PRN (23:10)
[2019-04-08] MEDS: hydrOXYzine PAMOATE 50 MG CAPSULE (FP) PO PRN ×3 (06:24→21:31)
[2019-04-08] MEDS ORDERED: PT OWN MED DRAWER 7, Y5N ONE (08:59)
[2019-04-08] MEDS: PRENATAL VITAMINS W/ FOLIC ACID TABLET (FP) PO SCH (09:54)
[2019-04-08] MEDS: metoPROLOL SUCCINATE 25 MG TAB.SR.24H (FP) PO SCH (09:54)
[2019-04-08] MEDS: valACYclovir HCL 500 MG TABLET (FP) PO SCH ×2 (09:54→21:30)
[2019-04-08] MEDS: NICOTINE 21 MG/24 HOURS TOPICAL PATCH TD SCH (09:54)
[2019-04-08] MEDS: PANTOPRAZOLE 20 MG TABLET (FP) PO SCH (09:55)
[2019-04-08] MEDS: predniSONE 20 MG TABLET (UD) PO SCH (10:16)
[2019-04-08] MEDS: DULoxetine HCL 30 MG CAPSULE.DR PO SCH (10:16)
[2019-04-08] MEDS ORDERED: predniSONE 20 MG TABLET (UD) PO SCH (13:00)
[2019-04-08] MEDS ORDERED: predniSONE 10 MG TABLET (UD) PO SCH (13:06)
[2019-04-08] MEDS: MELATONIN 5 MG TABLETS PO PRN (21:30)
[2019-04-08] MEDS: THIAMINE HCL 100 MG TABLET (FP) PO SCH (21:30)
[2019-04-08] MEDS: ACETAMINOPHEN 325 MG TABLET (FP) PO PRN (21:33)
[2019-04-09] MEDS: hydrOXYzine PAMOATE 50 MG CAPSULE (FP) PO PRN ×2 (06:12→10:35)
[2019-04-09] MEDS: valACYclovir HCL 500 MG TABLET (FP) PO SCH ×2 (10:33→21:29)
[2019-04-09] MEDS: PRENATAL VITAMINS W/ FOLIC ACID TABLET (FP) PO SCH (10:33)
[2019-04-09] MEDS: DULoxetine HCL 30 MG CAPSULE.DR PO SCH (10:33)
[2019-04-09] MEDS: NICOTINE 21 MG/24 HOURS TOPICAL PATCH TD SCH (10:34)
[2019-04-09] MEDS: metoPROLOL SUCCINATE 25 MG TAB.SR.24H (FP) PO SCH (10:34)
[2019-04-09] MEDS: predniSONE 10 MG TABLET (UD) PO SCH (10:34)
[2019-04-09] MEDS: CYCLOBENZAPRINE HCL 10 MG TABLET (FP) PO SCH ×2 (13:58→21:29)
[2019-04-09] MEDS: ACETAMINOPHEN 325 MG TABLET (FP) PO PRN (13:59)
[2019-04-09] MEDS ORDERED: GABAPENTIN 300 MG CAPSULE (FP) PO PRN (16:18)
--- NOTE | 2019-04-09 16:19 | CONSULT ---
[facility] Psychiatric Consult - Data Date of interview: 04/09/19 Admission source: [facility] Identifying data: Ms Julien is a 33 year old single female, unemployed, domiciled (living with parents), and is supported by [facility]. Patient admitted to detox for oxycontin and benzodiazepine. Substance Abuse History: Smoking Cessation. Smoking history: Never smoked. - Substance & Tx. History. Substance Use Type: Prescribed. - Substances abused. Oxycontin. Substance route: Oral. Frequency: Daily. Amount used: 120 mg. Age of first use: 29. Date of last use: 03/26/19. Other. Other ( specify): clonazepam. Substance route: Oral. Frequency: Daily Medical History: Significant for migraine headache, GERD, PPD+, history of crohn 's disease and surgeries(right lumpectomy for benign breast tumor, ileo- colostomy in 2007 and reverse in 2008, lap cholecystectomy, umbilical hernia repair) Psychiatric History: Patient seen by Dr. Balderas while in detox on 04/01/19. History remains consistent. States that her first psychiatric contact was in 2007 due to her depression which was related to her Crohn's disease diagnosis. She saw a psychiatrist at [facility] in [place] and was started on Lexapro 20 mg/day and Klonopin. She has been receiving psychiatric treatment at same clinic since but with different psychiatrist. She is currently prescribed Wellbutrin XL 150 mg/day and Cymbalta 30 mg/day. Ms. Knott reports history of one psychiatric admission to [facility] in 2016 for 4 days after she took a combination of medications ( klonopin, Lyrica) and woke up confused. She denies it being a suicide attempt. Patient denies h/o suicide attempt. At present, patient reports worsening anxiety and difficulty sleeping which is unresolved by current medications. Physical/Sexual Abuse/Trauma History: denies. Mental Status Exam - Mental Status Exam Alert and Oriented to: Time, Place, Person Cognitive Function: Good Patient Appearance: Well Groomed Mood: Euthymic Affect: Appropriate Patient Behavior: Cooperative Speech Pattern: Appropriate Voice Loudness: Normal Thought Process: Goal Oriented Thought Disorder: Not Present Hallucinations: Denies Suicidal Ideation: Denies Homicidal Ideation: Denies Insight/Judgement: Poor Sleep: Poorly Appetite: Fair Muscle strength/Tone: Normal Gait/Station: Normal Psychiatric Findings - Problem List ([place] 1, 2,3) (1) Substance induced mood disorder Current Visit: Yes Status: Acute (2) Substance-induced sleep disorder Current Visit: Yes Status: Acute (3) MDD (major depressive disorder) Current Visit: Yes Status: Chronic (4) Opioid dependence, uncomplicated Current Visit: Yes Status: Acute (5) Sedative, hypnotic or anxiolytic dependence, uncomplicated Current Visit: Yes Status: Acute (6) Substance-induced anxiety disorder Current Visit: Yes Status: Acute - Initial Treatment Plan Initial Treatment Plan: Psychoeducation provided. Rehab in progress. Will continue current psychotropic medications. Will d/c vistaril 50mg q4h and order vistaril 75mg q6h as needed for agitation. Will also order Belsomra 10mg HS PRN for insomnia. Benefits and side effects discussed. Verbal consent given.
[2019-04-09] MEDS: THIAMINE HCL 100 MG TABLET (FP) PO SCH (21:29)
[2019-04-09] MEDS: hydrOXYzine PAMOATE 25 MG CAPSULE (FP) PO PRN (21:29)
[2019-04-09] MEDS: PREGABALIN 75 MG CAPSULE PO SCH (21:29)
[2019-04-09] MEDS: LIDOCAINE PATCH REMOVAL MC SCH (21:30)
[2019-04-09] MEDS ORDERED: SUVOREXANT 10 MG TABLET PO PRN (22:00)
[2019-04-09] MEDS ORDERED: LIDOCAINE PATCH REMOVAL MC SCH (22:00)
[2019-04-10] MEDS: PREGABALIN 75 MG CAPSULE PO SCH ×3 (06:02→21:17)
[2019-04-10] MEDS: CYCLOBENZAPRINE HCL 10 MG TABLET (FP) PO SCH ×3 (06:02→21:16)
[2019-04-10] MEDS: hydrOXYzine PAMOATE 25 MG CAPSULE (FP) PO PRN ×2 (06:02→21:16)
[2019-04-10] MEDS ORDERED: LIDOCAINE 5% TOPICAL PATCH TP SCH (10:00)
[2019-04-10] MEDS: LIDOCAINE 5% TOPICAL PATCH TP SCH (10:22)
[2019-04-10] MEDS: valACYclovir HCL 500 MG TABLET (FP) PO SCH ×2 (10:23→21:16)
[2019-04-10] MEDS: DULoxetine HCL 30 MG CAPSULE.DR PO SCH (10:23)
[2019-04-10] MEDS: NICOTINE 21 MG/24 HOURS TOPICAL PATCH TD SCH (10:23)
[2019-04-10] MEDS: PRENATAL VITAMINS W/ FOLIC ACID TABLET (FP) PO SCH (10:23)
[2019-04-10] MEDS: metoPROLOL SUCCINATE 25 MG TAB.SR.24H (FP) PO SCH (10:23)
[2019-04-10] MEDS: predniSONE 10 MG TABLET (UD) PO SCH (10:25)
[2019-04-10] MEDS ORDERED: PT OWN MED DRAWER 7, Y5N ONE (10:26)
[2019-04-10] MEDS: THIAMINE HCL 100 MG TABLET (FP) PO SCH (21:16)
[2019-04-10] MEDS: LIDOCAINE PATCH REMOVAL MC SCH (21:17)
[2019-04-10] MEDS: SUVOREXANT 10 MG TABLET PO PRN (21:17)
[2019-04-11] MEDS: MAG HYDROX/AL HYDROX/SIMETH 30 ML UNIT-DOSE CUP PO PRN ×2 (03:07→10:24)
[2019-04-11] MEDS: CYCLOBENZAPRINE HCL 10 MG TABLET (FP) PO SCH ×3 (06:02→21:07)
[2019-04-11] MEDS: PREGABALIN 75 MG CAPSULE PO SCH ×3 (06:03→21:08)
[2019-04-11] MEDS ORDERED: COLLOIDAL OATMEAL 1 BAR EACH TP PRN (08:32)
[2019-04-11] MEDS: hydrOXYzine PAMOATE 25 MG CAPSULE (FP) PO PRN (08:45)
[2019-04-11] MEDS ORDERED: PT OWN MED DRAWER 7, Y5N ONE (09:09)
[2019-04-11] MEDS: PRENATAL VITAMINS W/ FOLIC ACID TABLET (FP) PO SCH (10:21)
[2019-04-11] MEDS: predniSONE 10 MG TABLET (UD) PO SCH (10:21)
[2019-04-11] MEDS: LIDOCAINE 5% TOPICAL PATCH TP SCH (10:21)
[2019-04-11] MEDS: DULoxetine HCL 30 MG CAPSULE.DR PO SCH (10:22)
[2019-04-11] MEDS: metoPROLOL SUCCINATE 25 MG TAB.SR.24H (FP) PO SCH (10:22)
[2019-04-11] MEDS: valACYclovir HCL 500 MG TABLET (FP) PO SCH ×2 (10:22→21:07)
[2019-04-11] MEDS: NICOTINE 21 MG/24 HOURS TOPICAL PATCH TD SCH (10:23)
[2019-04-11] MEDS ORDERED: PANTOPRAZOLE 40 MG TABLET (FP) PO ONE (15:31)
[2019-04-11] MEDS: LIDOCAINE PATCH REMOVAL MC SCH (21:06)
[2019-04-11] MEDS: SUVOREXANT 10 MG TABLET PO PRN (21:07)
[2019-04-11] MEDS: THIAMINE HCL 100 MG TABLET (FP) PO SCH (21:07)
[2019-04-11] MEDS: MELATONIN 5 MG TABLETS PO PRN (21:08)
[2019-04-12] MEDS: MAG HYDROX/AL HYDROX/SIMETH 30 ML UNIT-DOSE CUP PO PRN ×2 (02:45→16:40)
[2019-04-12] MEDS: PREGABALIN 75 MG CAPSULE PO SCH ×3 (06:12→21:31)
[2019-04-12] MEDS: CYCLOBENZAPRINE HCL 10 MG TABLET (FP) PO SCH ×3 (06:12→21:31)
[2019-04-12] MEDS: DULoxetine HCL 30 MG CAPSULE.DR PO SCH (10:06)
[2019-04-12] MEDS: NICOTINE 21 MG/24 HOURS TOPICAL PATCH TD SCH (10:06)
[2019-04-12] MEDS: LIDOCAINE 5% TOPICAL PATCH TP SCH (10:06)
[2019-04-12] MEDS: predniSONE 10 MG TABLET (UD) PO SCH (10:06)
[2019-04-12] MEDS: PRENATAL VITAMINS W/ FOLIC ACID TABLET (FP) PO SCH (10:07)
[2019-04-12] MEDS: valACYclovir HCL 500 MG TABLET (FP) PO SCH ×2 (10:07→21:31)
[2019-04-12] MEDS: PANTOPRAZOLE 40 MG TABLET (FP) PO SCH (10:07)
[2019-04-12] MEDS: metoPROLOL SUCCINATE 25 MG TAB.SR.24H (FP) PO SCH (11:35)
[2019-04-12] MEDS: hydrOXYzine PAMOATE 25 MG CAPSULE (FP) PO PRN (16:39)
[2019-04-12] MEDS: LIDOCAINE PATCH REMOVAL MC SCH (21:31)
[2019-04-12] MEDS: THIAMINE HCL 100 MG TABLET (FP) PO SCH (21:31)
[2019-04-12] MEDS: MELATONIN 5 MG TABLETS PO PRN (21:33)
[2019-04-12] MEDS: SUVOREXANT 10 MG TABLET PO PRN (21:33)
[2019-04-13] MEDS: PREGABALIN 75 MG CAPSULE PO SCH ×3 (06:22→21:10)
[2019-04-13] MEDS: CYCLOBENZAPRINE HCL 10 MG TABLET (FP) PO SCH ×3 (06:22→21:10)
[2019-04-13] MEDS ORDERED: PT OWN MED DRAWER 7, Y5N ONE (08:37)
[2019-04-13] MEDS: NICOTINE 21 MG/24 HOURS TOPICAL PATCH TD SCH (09:56)
[2019-04-13] MEDS: PANTOPRAZOLE 40 MG TABLET (FP) PO SCH (09:57)
[2019-04-13] MEDS: metoPROLOL SUCCINATE 25 MG TAB.SR.24H (FP) PO SCH (09:57)
[2019-04-13] MEDS: LIDOCAINE 5% TOPICAL PATCH TP SCH (09:57)
[2019-04-13] MEDS: valACYclovir HCL 500 MG TABLET (FP) PO SCH ×2 (09:57→21:10)
[2019-04-13] MEDS: predniSONE 10 MG TABLET (UD) PO SCH (09:57)
[2019-04-13] MEDS: PRENATAL VITAMINS W/ FOLIC ACID TABLET (FP) PO SCH (09:57)
[2019-04-13] MEDS: DULoxetine HCL 30 MG CAPSULE.DR PO SCH (09:57)
[2019-04-13] MEDS: hydrOXYzine PAMOATE 25 MG CAPSULE (FP) PO PRN (17:57)
[2019-04-13] MEDS: MAG HYDROX/AL HYDROX/SIMETH 30 ML UNIT-DOSE CUP PO PRN (17:58)
[2019-04-13] MEDS: MELATONIN 5 MG TABLETS PO PRN (21:10)
[2019-04-13] MEDS: THIAMINE HCL 100 MG TABLET (FP) PO SCH (21:10)
[2019-04-13] MEDS: LIDOCAINE PATCH REMOVAL MC SCH (21:12)
[2019-04-13] MEDS: SUVOREXANT 10 MG TABLET PO PRN (23:02)
[2019-04-14] MEDS: CYCLOBENZAPRINE HCL 10 MG TABLET (FP) PO SCH ×3 (06:08→21:24)
[2019-04-14] MEDS: PREGABALIN 75 MG CAPSULE PO SCH ×3 (06:08→21:24)
[2019-04-14] MEDS: predniSONE 5 MG TABLET (UD) PO SCH (10:29)
[2019-04-14] MEDS: valACYclovir HCL 500 MG TABLET (FP) PO SCH ×2 (10:29→21:24)
[2019-04-14] MEDS: PRENATAL VITAMINS W/ FOLIC ACID TABLET (FP) PO SCH (10:29)
[2019-04-14] MEDS: PANTOPRAZOLE 40 MG TABLET (FP) PO SCH (10:29)
[2019-04-14] MEDS: DULoxetine HCL 30 MG CAPSULE.DR PO SCH (10:29)
[2019-04-14] MEDS: LIDOCAINE 5% TOPICAL PATCH TP SCH (10:31)
[2019-04-14] MEDS: hydrOXYzine PAMOATE 25 MG CAPSULE (FP) PO PRN ×2 (10:33→21:24)
[2019-04-14] MEDS: metoPROLOL SUCCINATE 25 MG TAB.SR.24H (FP) PO SCH (15:25)
[2019-04-14] MEDS: THIAMINE HCL 100 MG TABLET (FP) PO SCH (21:23)
[2019-04-14] MEDS: SUVOREXANT 10 MG TABLET PO PRN (21:25)
[2019-04-14] MEDS: LIDOCAINE PATCH REMOVAL MC SCH (21:25)
[2019-04-15] MEDS: PREGABALIN 75 MG CAPSULE PO SCH ×3 (06:16→21:32)
[2019-04-15] MEDS: CYCLOBENZAPRINE HCL 10 MG TABLET (FP) PO SCH ×3 (06:17→21:32)
[2019-04-15] MEDS: LIDOCAINE 5% TOPICAL PATCH TP SCH (09:02)
[2019-04-15] MEDS: DULoxetine HCL 30 MG CAPSULE.DR PO SCH (09:02)
[2019-04-15] MEDS: predniSONE 5 MG TABLET (UD) PO SCH (09:02)
[2019-04-15] MEDS: metoPROLOL SUCCINATE 25 MG TAB.SR.24H (FP) PO SCH (09:03)
[2019-04-15] MEDS: PANTOPRAZOLE 40 MG TABLET (FP) PO SCH (09:03)
[2019-04-15] MEDS: valACYclovir HCL 500 MG TABLET (FP) PO SCH ×2 (09:03→21:32)
[2019-04-15] MEDS: PRENATAL VITAMINS W/ FOLIC ACID TABLET (FP) PO SCH (09:03)
[2019-04-15] MEDS: hydrOXYzine PAMOATE 25 MG CAPSULE (FP) PO PRN (21:32)
[2019-04-15] MEDS: THIAMINE HCL 100 MG TABLET (FP) PO SCH (21:32)
[2019-04-15] MEDS: LIDOCAINE PATCH REMOVAL MC SCH (21:33)
[2019-04-15] MEDS: SUVOREXANT 10 MG TABLET PO PRN (21:33)
[2019-04-16] MEDS: PREGABALIN 75 MG CAPSULE PO SCH ×3 (06:22→22:44)
[2019-04-16] MEDS: CYCLOBENZAPRINE HCL 10 MG TABLET (FP) PO SCH ×3 (06:23→21:26)
[2019-04-16] MEDS: PRENATAL VITAMINS W/ FOLIC ACID TABLET (FP) PO SCH (09:44)
[2019-04-16] MEDS: predniSONE 5 MG TABLET (UD) PO SCH (09:44)
[2019-04-16] MEDS: DULoxetine HCL 30 MG CAPSULE.DR PO SCH (09:45)
[2019-04-16] MEDS: PANTOPRAZOLE 40 MG TABLET (FP) PO SCH (09:45)
[2019-04-16] MEDS: metoPROLOL SUCCINATE 25 MG TAB.SR.24H (FP) PO SCH (09:45)
[2019-04-16] MEDS: valACYclovir HCL 500 MG TABLET (FP) PO SCH ×2 (09:45→21:26)
[2019-04-16] MEDS: LIDOCAINE 5% TOPICAL PATCH TP SCH (09:46)
[2019-04-16] MEDS: hydrOXYzine PAMOATE 25 MG CAPSULE (FP) PO PRN ×2 (14:04→21:26)
[2019-04-16] MEDS: LIDOCAINE PATCH REMOVAL MC SCH (21:26)
[2019-04-16] MEDS: THIAMINE HCL 100 MG TABLET (FP) PO SCH (21:26)
[2019-04-16] MEDS: SUVOREXANT 10 MG TABLET PO PRN (21:27)
[2019-04-16] MEDS ORDERED: PREGABALIN 75 MG CAPSULE PO SCH (22:22)
[2019-04-17] MEDS: PREGABALIN 75 MG CAPSULE PO SCH ×3 (06:14→21:30)
[2019-04-17] MEDS: CYCLOBENZAPRINE HCL 10 MG TABLET (FP) PO SCH ×3 (06:14→21:27)
[2019-04-17] MEDS: MENTHOL/PHENOL 1 EACH UD MM PRN (07:20)
[2019-04-17] MEDS: predniSONE 5 MG TABLET (UD) PO SCH (09:48)
[2019-04-17] MEDS: DULoxetine HCL 30 MG CAPSULE.DR PO SCH (09:48)
[2019-04-17] MEDS: valACYclovir HCL 500 MG TABLET (FP) PO SCH ×2 (09:49→21:27)
[2019-04-17] MEDS: PRENATAL VITAMINS W/ FOLIC ACID TABLET (FP) PO SCH (09:49)
[2019-04-17] MEDS: LIDOCAINE 5% TOPICAL PATCH TP SCH (09:49)
[2019-04-17] MEDS: PANTOPRAZOLE 40 MG TABLET (FP) PO SCH (09:49)
[2019-04-17] MEDS: hydrOXYzine PAMOATE 25 MG CAPSULE (FP) PO PRN ×2 (09:50→21:27)
[2019-04-17] MEDS: metoPROLOL SUCCINATE 25 MG TAB.SR.24H (FP) PO SCH (10:12)
[2019-04-17] MEDS ORDERED: PT OWN MED DRAWER 7, Y5N ONE (11:58)
[2019-04-17] MEDS: THIAMINE HCL 100 MG TABLET (FP) PO SCH (21:26)
[2019-04-17] MEDS: LIDOCAINE PATCH REMOVAL MC SCH (21:30)
[2019-04-18] MEDS: CYCLOBENZAPRINE HCL 10 MG TABLET (FP) PO SCH ×3 (06:04→21:31)
[2019-04-18] MEDS: PREGABALIN 75 MG CAPSULE PO SCH ×3 (06:04→21:31)
[2019-04-18] MEDS: valACYclovir HCL 500 MG TABLET (FP) PO SCH ×2 (09:33→21:31)
[2019-04-18] MEDS: DULoxetine HCL 30 MG CAPSULE.DR PO SCH (09:33)
[2019-04-18] MEDS: metoPROLOL SUCCINATE 25 MG TAB.SR.24H (FP) PO SCH (09:33)
[2019-04-18] MEDS: PRENATAL VITAMINS W/ FOLIC ACID TABLET (FP) PO SCH (09:33)
[2019-04-18] MEDS: PANTOPRAZOLE 40 MG TABLET (FP) PO SCH (09:33)
[2019-04-18] MEDS: LIDOCAINE 5% TOPICAL PATCH TP SCH (09:34)
[2019-04-18] MEDS: hydrOXYzine PAMOATE 25 MG CAPSULE (FP) PO PRN ×2 (09:34→21:32)
[2019-04-18] MEDS: THIAMINE HCL 100 MG TABLET (FP) PO SCH (21:31)
[2019-04-18] MEDS: ACETAMINOPHEN 325 MG TABLET (FP) PO PRN (21:32)
[2019-04-18] MEDS: MELATONIN 5 MG TABLETS PO PRN (21:34)
[2019-04-18] MEDS: LIDOCAINE PATCH REMOVAL MC SCH (22:08)
[2019-04-19] MEDS: PREGABALIN 75 MG CAPSULE PO SCH ×3 (06:06→21:34)
[2019-04-19] MEDS: CYCLOBENZAPRINE HCL 10 MG TABLET (FP) PO SCH ×3 (06:07→21:32)
--- NOTE | 2019-04-19 09:56 | PN ---
[facility] Progress Note Note: Patient is referred for elevated HR. Patient has h/o tachycardia, EKG done on showed sinus tachycardia with possible left atrial enlargement. She is currently on BB. She denies fever, chest pain, SOB, but reports occasional palpitation. HEENT: Unremarkable Chest: Lungs clear in all jack CVS: Tachycardia, S1S2,RR, no murmur A/P Tachycardia- Increase Toprol XL to 50mg PO QD Patient will need full cardiac workup following discharge. She has been instructed to follow up with her PCP once discharged for possible cardiology referral, she verbalized understanding
[2019-04-19] MEDS: DULoxetine HCL 30 MG CAPSULE.DR PO SCH (10:12)
[2019-04-19] MEDS: PRENATAL VITAMINS W/ FOLIC ACID TABLET (FP) PO SCH (10:12)
[2019-04-19] MEDS: LIDOCAINE 5% TOPICAL PATCH TP SCH (10:12)
[2019-04-19] MEDS: PANTOPRAZOLE 40 MG TABLET (FP) PO SCH (10:13)
[2019-04-19] MEDS: valACYclovir HCL 500 MG TABLET (FP) PO SCH ×2 (10:13→21:32)
[2019-04-19] MEDS: metoPROLOL SUCCINATE 25 MG TAB.SR.24H (FP) PO SCH (10:43)
[2019-04-19] MEDS: MELATONIN 5 MG TABLETS PO PRN (21:32)
[2019-04-19] MEDS: hydrOXYzine PAMOATE 25 MG CAPSULE (FP) PO PRN (21:32)
[2019-04-19] MEDS: THIAMINE HCL 100 MG TABLET (FP) PO SCH (21:32)
[2019-04-19] MEDS: LIDOCAINE PATCH REMOVAL MC SCH (21:33)
[2019-04-20] MEDS: CYCLOBENZAPRINE HCL 10 MG TABLET (FP) PO SCH ×3 (06:33→21:22)
[2019-04-20] MEDS: PREGABALIN 75 MG CAPSULE PO SCH ×3 (06:33→21:24)
[2019-04-20] MEDS: metoPROLOL SUCCINATE 25 MG TAB.SR.24H (FP) PO SCH (10:10)
[2019-04-20] MEDS: PRENATAL VITAMINS W/ FOLIC ACID TABLET (FP) PO SCH (10:10)
[2019-04-20] MEDS: DULoxetine HCL 30 MG CAPSULE.DR PO SCH (10:10)
[2019-04-20] MEDS: valACYclovir HCL 500 MG TABLET (FP) PO SCH ×2 (10:10→21:22)
[2019-04-20] MEDS: LIDOCAINE 5% TOPICAL PATCH TP SCH (10:10)
[2019-04-20] MEDS: PANTOPRAZOLE 40 MG TABLET (FP) PO SCH (10:10)
[2019-04-20] MEDS: hydrOXYzine PAMOATE 25 MG CAPSULE (FP) PO PRN ×2 (10:12→21:22)
[2019-04-20] MEDS: ACETAMINOPHEN 325 MG TABLET (FP) PO PRN ×2 (12:54→21:25)
[2019-04-20] MEDS: THIAMINE HCL 100 MG TABLET (FP) PO SCH (21:21)
[2019-04-20] MEDS: LIDOCAINE PATCH REMOVAL MC SCH (21:22)
[2019-04-20] MEDS ORDERED: SUVOREXANT 10 MG TABLET PO ONE (22:00)
[2019-04-21] MEDS: CYCLOBENZAPRINE HCL 10 MG TABLET (FP) PO SCH (06:17)
[2019-04-21] MEDS: PREGABALIN 75 MG CAPSULE PO SCH (06:17)
[2019-04-21 07:15] VITALS: TEMP 98
[2019-04-21 09:05] VITALS: BP 110/79; PULSE 137
[2019-04-21] MEDS: LIDOCAINE 5% TOPICAL PATCH TP SCH (09:07)
[2019-04-21] MEDS: DULoxetine HCL 30 MG CAPSULE.DR PO SCH (09:07)
[2019-04-21] MEDS: metoPROLOL SUCCINATE 25 MG TAB.SR.24H (FP) PO SCH (09:08)
[2019-04-21] MEDS: valACYclovir HCL 500 MG TABLET (FP) PO SCH (09:08)
[2019-04-21] MEDS: PANTOPRAZOLE 40 MG TABLET (FP) PO SCH (09:08)
[2019-04-21] MEDS: PRENATAL VITAMINS W/ FOLIC ACID TABLET (FP) PO SCH (09:08)
[2019-04-21] MEDS: hydrOXYzine PAMOATE 25 MG CAPSULE (FP) PO PRN (09:09)
--- NOTE | 2019-04-21 09:13 | PN ---
[facility] Progress Note (SOAP) Subjective: Pt is a 33 y/o female admitted to rehab on 04/04/[address] Hx of oxycodone and Pt is scheduled for discharge today. Pt met with counselor and has been referred to [facility] CD aftercare [address] [place], [place]. Pt reports she has a primary care provider Dr. Jen Juárez @ [facility]/ [address] [place], [place] . Pt appears calm and positive for her next level of care. Denies s/h/i. Objective: 04/21/19 09:20 Vital Signs - 24 hr 04/20/19 04/20/19 04/21/19 09:25 20:50 00:30 Temperature Pulse Rate 125 H 123 H Respiratory 18 Rate Blood Pressure 103/73 114/79 04/21/19 04/21/19 04/21/19 03:30 07:14 09:04 Temperature 98.0 F Pulse Rate 90 137 H Respiratory 18 18 18 Rate Blood Pressure 123/90 110/79 Laboratory Tests 04/08/19 04/08/19 09:30 16:00 HIV 1&2 Ag/Ab, 4th Gen Non reactive HIV 1&2 Antibody Screen Cancelled HIV P24 Antigen Cancelled Home Medications Medication Instructions Recorded Clonazepam 0.5 mg PO BID 03/31/19 Metoprolol Succinate 25 mg PO DAILY 03/31/19 Sprintec 28 Day Tablet 0.25 mg PO DAILY 03/31/19 Stelara 45 mg SQ Q2M 03/31/19 Sumatriptan 100 mg PO DAILY PRN 03/31/19 Zantac 20 mg PO DAILY 03/31/19 Bupropion HCl [Wellbutrin Xl -] 150 mg PO DAILY 04/05/19 Metoprolol Succinate [Toprol XL -] 25 mg PO DAILY 04/05/19 Pantoprazole Sodium [Protonix -] 20 mg PO DAILY 04/05/19 Valacyclovir HCl [Valtrex -] 500 mg PO BID 04/05/19 Duloxetine HCl [Cymbalta] 30 mg PO DAILY 04/06/19 Pregabalin [Lyrica -] 150 mg PO TID 04/06/19 predniSONE [Deltasone -] 20 mg PO DAILY 04/06/19 Pt states she has own meds and has appointment for her provider follow up visit. Assessment: 04/21/19 11:30 Medically stable [facility] Inpatient Services Medical - Diagnosis (1) Heart palpitations Current Visit: Yes Status: Chronic (2) Opioid dependence, uncomplicated Current Visit: Yes Status: Chronic (3) Sedative, hypnotic or anxiolytic dependence, uncomplicated Current Visit: Yes Status: Chronic (4) Crohn disease Qualifiers: Gastrointestinal tract location: unspecified location Current Visit: Yes Status: Chronic (5) GERD (gastroesophageal reflux disease) Current Visit: Yes Status: Chronic (6) Migraines Qualifiers: Migraine type: unspecified Current Visit: Yes Status: Chronic Initialized on 04/21/19 09:13 - END OF NOTE Plan: D/c pt today Follow up with CD aftercare as recommended. Follow up with primary care provider within 1-2 weeks after discharge.
== END 2019-04-21 09:20 | disposition home or self-care (01) | DRG 895 ==
LOC: YASAS 13:31 → Y3E 13:32 → Y3W 04-06 14:56 → Y3E 04-06 14:57
PROVIDERS: ADMIT Neuromusculoskeletal Medicine & OMM; ATTEND Neuromusculoskeletal Medicine & OMM
PROC: HZ42ZZZ Group Counseling for Substance Abuse Treatment, Cognitive-Behavioral (ICD-10-PCS; principal; 2019-04-05)
DX: F11.20 Opioid dependence, uncomplicated (principal); F13.20 Sedative, hypnotic or anxiolytic dependence, uncomplicated; F19.282 Other psychoactive substance dependence with psychoactive substance-induced sleep disorder; F19.280 Other psychoactive substance dependence with psychoactive substance-induced anxiety disorder; K50.90 Crohn's disease, unspecified, without complications; F19.24 Other psychoactive substance dependence with psychoactive substance-induced mood disorder; F32.9 Major depressive disorder, single episode, unspecified; K21.9 Gastro-esophageal reflux disease without esophagitis; E00.2 Congenital iodine-deficiency syndrome, mixed type; E00.0 Congenital iodine-deficiency syndrome, neurological type; Z88.8 Allergy status to other drugs, medicaments and biological substances
CPT/HCPCS: 36415; 87389